=== PATIENT | female | born 2005 | race African-American/Black ===

== ENCOUNTER 2025-01-20 21:45 | Emergency (ER) | payer OTHER ==
[~2025-01-20] VITALS: Ht 154.9 cm; Wt 54.0 kg
[2025-01-20 22:00] VITALS: O2SAT 100
[2025-01-20 22:18] VITALS: TEMP 36.9
[2025-01-20] MEDS: DIPHENHYDRAMINE 25MG CAPSULE PO ONE (22:43)
[2025-01-20] MEDS: KETOROLAC 15MG/ML VIAL IM ONE (22:43)
[2025-01-20] MEDS: METOCLOPRAMIDE HCL 10MG TABLET PO ONE (22:44)
[2025-01-20 23:53] LABS: BASOPHILS % 0.3 % (0.0-2.0); HEMATOCRIT. 43.1 % (36.0-48.0); HEMOGLOBIN. 14.3 g/dL (12.0-16.0); LYMPHOCYTES % 18.4 % (20.0-50.0); MEAN CORPUSCULAR HEMOGLOBIN 27.1 pg (28.0-32.0); MEAN CORPUSCULAR HGB CONC 33.1 g/dL (31.0-37.0); MEAN CORPUSCULAR VOLUME 81.9 fL (81.0-99.0); MEAN PLATELET VOLUME 11.3 fl (7.4-10.4); MONOCYTES % 4.5 % (2.0-8.0); NEUTROPHILS % 75.8 % (40.0-76.0); PLATELET 142 x1000/uL (130-400); RED BLOOD CELL COUNT 5.26 mill/uL (4.2-5.4); RED CELL DISTRIBUTION WIDTH 13.9 % (11.6-14.6); WHITE BLOOD COUNT 7.2 x1000/uL (4.5-11.0)
[2025-01-21 00:01] LABS: CHLORIDE 109 mEq/L (98-107); POTASSIUM 3.7 mEq/L (3.5-5.1); SODIUM 143 mEq/L (136-145)
[2025-01-21 00:02] LABS: CALCIUM 9.2 mg/dL (8.7-10.4); CARBON DIOXIDE 26 mEq/L (21-32)
[2025-01-21 00:07] LABS: CREATININE 0.9 mg/dL (0.6-1.0); GLUCOSE 104 mg/dL (70-105); UREA NITROGEN BLOOD 15 mg/dL (9-23)
[2025-01-21] MEDS ORDERED: NAPR-681 MT (00:40)
[2025-01-21 01:34] LABS: HCG SCREEN NEGATIVE
[2025-01-21 01:38] VITALS: BP 113/63; PULSE 68; RESP 19; O2SAT 98
== END 2025-01-21 01:39 | disposition home or self-care (01) ==
LOC: ER 21:45
DX: G43.909 Migraine, unspecified, not intractable, without status migrainosus (principal); J45.909 Unspecified asthma, uncomplicated; Z79.1 Long term (current) use of non-steroidal anti-inflammatories (NSAID); Z79.899 Other long term (current) drug therapy
CPT/HCPCS: 99285; 70450; 80048; 81025; 84703; 85025; 36415; 96372; J1885; Q0163; J8597